=== PATIENT | female | born 1980 | race Caucasian/White ===

== ENCOUNTER → 2020-08-01 09:14 | Outpatient (BNVA) | payer OTHER, SELFPAY | PROVIDERS: Visit Provider Internal Medicine | DX: Z11.59 Encounter for screening for other viral diseases (principal) | CPT/HCPCS: 87635 ==

== ENCOUNTER 2020-08-06 07:33 | Day surgery (SDC) | payer OTHER, SELFPAY ==
[2020-08-05 17:30] VITALS: BMI 22.2
[2020-08-06 07:54] VITALS: BP 116/85; PULSE 106; RESP 18; TEMP 36.7; O2SAT 99
--- NOTE | 2020-08-06 07:58 | W.PM.OPSUD ---
Surgery/Procedure H&P Update DATE OF PROCEDURE: August 06, 2020 DATE H&P PERFORMED: 07/29/20 H&P UPDATE INFORMATION: I have reviewed H&P completed within last 30 days, I have examined patient prior to procedure and No changes to prior documentation PREOP DIAGNOSIS: Chronic cyst abdominal wall and right groin PLANNED PROCEDURE: Operation Date: 08/06/20 09:05 Proposed Procedures p Excision chronic cyst on abdomen x1 and right groin x2 08530 R22.9(Not Applicable) - Adam Ordaz MD
[2020-08-06 08:15] LABS: OR HCG Qualitative Urine Negative (Negative)
--- NOTE | 2020-08-06 08:15 | ANES.PREANE2 ---
Pre-Anesthetic Assessment Pre-Anesthetic Assessment: Height/Weight: Height 1.68 m Weight 62.596 kg Temp Pulse Resp BP Pulse Ox 98.1 F 106 H 18 116/85 99 08/06/20 07:54 08/06/20 07:54 08/06/20 07:54 08/06/20 07:54 08/06/20 07:54 Preop Diagnosis: Chronic cyst abdominal wall and right groin Proposed Procedure: Operation Date: 08/06/20 09:05 Proposed Procedures p Excision chronic cyst on abdomen x1 and right groin x2 45787 R22.9(Not Applicable) - Adam Ordaz MD Familial anesthetic complications: I chew threw anesthesia. I've woken up before Was Beta Chiara taken within 24 hours: N/A Last intake: Intake Last Liquid Date 08/06/20 Last Liquid Time 06:00 Last Solid Date 08/05/20 Last Solid Time 21:00 Social: Social History: Tobacco and No alcohol Exam: Pre-Anes Outpt Exam: alert, oriented x 3, clear to auscultation bilaterally and regular rate & rhythm Airway: Cervical ROM: WNL MP: 1 Dentition: Full Pulmonary: Pulmonary: Asthma CV/HEM: CV/HEM: HTN Neuropsych: Neuropsych: Seizure Comments: patient states she has had brain tumor for 6+years which has grown from 4 mm to 14 mm. She denies any mass effect symptoms including N/V, dizziness, double vision. She states she has headaches but they have occurred her whole life and they haven't changed in nature or intensity or frequency. She has had multiple surgeries in the past 6 years including multiple spine surgeries by neurospine surgeons, who knew about said lesion. She is in process of trying to see a neurosurgeon about the need for a biopsy to determine if lesion is a granuloma or cancer. Will proceed with MAC, but informed patient if signs of ICH occur (HTN + bradycardia) LMA would be placed for control of CO2. Will keep TIVA Anesthetic Plan: ASA status: 2 Anesthesia: General and MAC Risk of > 500 ml blood loss (7ml/kg in children): No PFSH Anesthesia PFSH: Medical History Chronic granulomatous disease Diverticulitis Hidradenitis suppurativa History of breast cancer Seizure Surgical History History of brain surgery History of reconstruction of left breast History of spinal surgery Family History Denies family history of Anesthesia complication Bleeding disorder Social History (Updated 08/01/20 @ 11:22 by Katherine Pitts LPN) Smoking and tobacco status: current every day smoker cigarettes Second hand smoke exposure: Yes Alcohol intake: never Household members: spouse and children Female Reproductive History: Date of last menstrual period: 07/30/20 Data Anesthesia Other Labs: Laboratory Results - last 48 hr 08/06/20 08:11 Urine HCG, Qual Negative Cardiac Studies: No Data to Display
[2020-08-06] MEDS: sodium chloride 0.9% 1,000 ML 30 ML IV (08:22)
[2020-08-06] MEDS: scopolamine 1.5 Patch 1 PATCH TRANSDERMA (08:23)
[2020-08-06] MEDS: lidocaine 1% INJ 20 mL SUBCUT (09:19)
[2020-08-06] MEDS: neomycin-poly-bacitracin oint 28 gm 1 APPLIC TOPICAL (09:37)
[2020-08-06 09:48] VITALS: BP 145/96; PULSE 92; RESP 14; TEMP 36.2; O2SAT 100
--- NOTE | 2020-08-06 09:53 | SUR.PHASEI ---
0948 PATIENT TO PACU FROM OR. RR EVEN AND UNLABORED. DENIES PAIN. DRESSING TO ABDOMEN, CDI. SPO2 100% ON SIMPLE MASK AT 8L.
[2020-08-06 09:55] VITALS: BP 143/87; PULSE 90; RESP 23; O2SAT 100
[2020-08-06 10:00] VITALS: BP 121/85; PULSE 85; RESP 16; TEMP 36.2; O2SAT 99
--- NOTE | 2020-08-06 10:07 | SUR.PHASEI ---
1003 PATIENT TO OPS FROM PACU. TOLERATING ICE CHIPS. DENIES NAUSEA. PAIN 02/28.
--- NOTE | 2020-08-06 10:09 | P.OP_ITS ---
Operative Report Date of procedure: August 06, 2020 Pre-op Diagnosis: Chronic cyst abdominal wall and right groin Post-op Diagnosis: Lesion 1: Chronic abscess 3 x 3 cm left lower abdominal wall at the scar Lesion 2: Chronic abscess measuring 2 x 2 cm right groin superiorly Lesion 3: Chronic abscess measuring 3 x 2 cm right groin inferiorly Procedure Done: Excision of chronic abscess 3 x 3 cm left lower abdominal wall at the scar Excision of chronic abscess measuring 2 x 2 cm right groin superiorly Excision of chronic abscess measuring 3 x 2 cm right groin inferiorly Specimens removed/disposition: chronic abscess abdominal wall and right groin Surgeon: Adam Ordaz Anesthesia: General Condition: stable Disposition: PACU Procedure: The patient was taken to the operating room and intubated under general anesthesia after IV antibiotic had been administered. The lower abdomen and right groin was prepped and draped in a sterile manner. 1% lidocaine with 0.5% Marcaine was infiltrated around the 3 lesions. Using 15 blade in a vertical 4 cm incision was made around the palpable mass in the left lower abdominal wall at the scar, electrocautery was used to dissect the subcutaneous tissue from the chronically inflamed cyst. The wound was irrigated with saline, hemostasis ensured and subcutaneous tissues approximated using interrupted 3-0 Vicryl suture and skin was closed using 3-0 Prolene suture. Using 15 blade in a oblique 3 cm elliptical incision was made around the palpable mass in the right groin superiorly, electrocautery was used to dissect the subcutaneous tissue from the chronically inflamed cyst. The wound was irrigated with saline, hemostasis ensured and subcutaneous tissues approximated using interrupted 3-0 Vicryl suture and skin was closed using 3-0 Prolene suture. Using 15 blade in a oblique 3 cm elliptical incision was made around the palpable mass in the right groin inferiorly, electrocautery was used to dissect the subcutaneous tissue from the chronically inflamed cyst. The wound was irrigated with saline, hemostasis ensured and subcutaneous tissues approximated using interrupted 3-0 Vicryl suture and skin was closed using 3-0 Prolene sut ure. Incisions are covered with antibiotic cream and sterile dressings. The patient was transferred to recovery room in stable condition.
[2020-08-06 10:12] VITALS: PULSE 87; RESP 18; TEMP 36.2; O2SAT 98
[2020-08-06 10:34] VITALS: BP 125/88; PULSE 78; RESP 18; TEMP 37.1; O2SAT 98
--- NOTE | 2020-08-06 10:59 | ANE.PACU2 ---
Inpatient post-anesthesia follow up: Airway intact: Yes Vital signs: Temperature 98.7 F Pulse Rate 78 Respiratory Rate 18 Blood Pressure 125/88 Pulse Oximetry 98 Oxygen Delivery Me thod Room Air Oxygen Flow Rate 8 Fraction of Inspir ed Oxygen Hydration adequate: Yes Nausea and vomiting: No Pain level: 1 Mental status: Baseline
== END 2020-08-06 10:43 | disposition home or self-care (01) ==
PROVIDERS: Visit Provider Surgery
PROC: (CPT 11403; principal; 2020-08-06 09:05)
DX: L72.0 Epidermal cyst (principal); J45.909 Unspecified asthma, uncomplicated; I10 Essential (primary) hypertension; Z85.3 Personal history of malignant neoplasm of breast; F17.210 Nicotine dependence, cigarettes, uncomplicated
CPT/HCPCS: 11403; 11406; 12032; 12345; 81025; 84703; 88304; 96365; J0690; J1100; J2250; J2405; J2704; J3010; J3490; J7030

== ENCOUNTER → 2020-10-31 09:52 | Outpatient (BNVA) | payer OTHER, SELFPAY | PROVIDERS: PCP Family Medicine Adult Medicine; Visit Provider Family Medicine Adult Medicine | DX: D49.6 Neoplasm of unspecified behavior of brain (principal); J45.909 Unspecified asthma, uncomplicated; I10 Essential (primary) hypertension; E83.42 Hypomagnesemia; L73.2 Hidradenitis suppurativa; K57.30 Diverticulosis of large intestine without perforation or abscess without bleeding; D71 Functional disorders of polymorphonuclear neutrophils | CPT/HCPCS: 80053; 80061; 84443; 85025; 86140 ==

== ENCOUNTER → 2020-11-06 09:38 | Outpatient (BNVA) | payer OTHER, SELFPAY | PROVIDERS: PCP Family Medicine Adult Medicine; Visit Provider Orthopaedic Surgery | DX: M50.30 Other cervical disc degeneration, unspecified cervical region (principal); M51.36 Other intervertebral disc degeneration, lumbar region | CPT/HCPCS: 72050 ==

== ENCOUNTER 2020-11-28 07:48 | Outpatient (CLI) | payer OTHER, SELFPAY ==
--- NOTE | 2020-11-28 07:55 | MR_ITS ---
WS: [id number] MRI CERVICAL SPINE with and without contrast. HISTORY: M50.30 - Other cervical disc degeneration, unspecified cervical region COMPARISON: 01/08/2020 Multiplanar, multisequence imaging performed through the cervical spine with and without contrast. Straightening of the normal cervical lordosis. There is extensive prior anterior cervical hardware th roughout the cervical spine. Anterior cervical hardware C3-4, C4-5. Interbody spacers are present at C3-4, C4-5, C5-6 and C6-7. Signal within the cervical cord is normal. Visualized posterior fossa is unremarkable. Craniocervical junction, C1 and C2 relationship, odontoid process and soft tissues are normal. C2-C3: Normal. C3-C4: Very mild hypertrophic bone formation without significant stenosis. C4-C5: Mild osteophytic ridging. There is mild encroachment upon the ventral thecal sac and foramen. Mild central stenosis. C5-C6: Osteophytic ridging and annular disc bulging. Disc osteophyte disease causing moderate RIGHT a nd mild LEFT foraminal stenosis and mild central stenosis. C6-C7: Diffuse osteophytic ridging and annular disc bulging. Disc osteophyte disease resulting in mod erate bilateral foraminal stenosis and mild central stenosis. C7-T1: Normal. Paravertebral soft tissues are negative. Soft tissue detail is limited by the hardware artifact. There is no evidence for discitis or osteomyelitis. No significant enhancement in the facet joints ar e along the synovium. MR/MR cervical spine wo/w [id number] IMPRESSION: 1. Extensive prior cervical fusion hardware and interbody spaces as described above. No complications are evident by MRI. MRI appearance is similar to 020. 2. Moderate RIGHT and mild LEFT foraminal stenosis at C5-6 with mild central s tenosis. 3. Moderate bilateral foraminal stenosis and mild central stenosis at C6-7. 4. Mild central stenosis at C4-5.
--- NOTE | 2020-11-28 08:00 | MR_ITS ---
WS: [id number] MRI THORACIC SPINE noncontrast. HISTORY: M50.30 - Other cervical disc degeneration, unspecified cervical region COMPARISON: None available. TECHNIQUE: Multiplanar sequences are performed in sagittal and axial planes. Extensive postoperative changes in the cervical spine. Posterior thoracic alignment is normal. There is very minimal anterior wedging of T10 and T11 with small Schmorl's node along the superior endplat es. No marrow edema. Signal within the thoracic cord is normal. T1-2: Normal. T2-3: Normal. T3-4: Normal. T4-5: Normal. T5-6: Shallow RIGHT paracentral protrusion. No significant stenosis. T6-7: Moderate size central disc protrusion extends slightly greater to the LEFT of midline with mil d contact of the cord but no displacement. T7-8: Small LEFT paracentral disc protrusion without cord contact. Mild narrowing of the LEFT forame n. T8-9: Normal. T9-10: Normal. T10-11: Mild bilateral facet joint arthritis. No stenosis. T11-12: Normal. Paravertebral soft tissues are normal. MR/MR thoracic spin wo con* [id number] IMPRESSION: 1. Mild anterior wedging of T10 and T11 without acute marrow edema. Schmorl's defects within each superior endplate are small. 2. Multilevel small disc protrusions. The most significant is moderate size at T6-7 with mild cord contact.
== END 2020-11-28 07:49 | disposition home or self-care (01) ==
LOC: RADSHAW 07:53
PROVIDERS: PCP Family Medicine Adult Medicine; Visit Provider Orthopaedic Surgery
DX: M50.30 Other cervical disc degeneration, unspecified cervical region (principal); M51.36 Other intervertebral disc degeneration, lumbar region; M54.9 Dorsalgia, unspecified; M48.54XA Collapsed vertebra, not elsewhere classified, thoracic region, initial encounter for fracture; R60.0 Localized edema
CPT/HCPCS: 72146; 72156; A9579

== ENCOUNTER → 2020-12-26 12:21 | Outpatient (BNVA) | payer OTHER, SELFPAY | PROVIDERS: PCP Family Medicine Adult Medicine; Visit Provider Orthopaedic Surgery | DX: Z20.822 Contact with and (suspected) exposure to COVID-19 (principal) | CPT/HCPCS: 87635 ==

== ENCOUNTER 2020-12-31 20:45 | Inpatient (IN) | payer OTHER, SELFPAY ==
[2020-12-24 09:21] VITALS: BMI 24.2
--- NOTE | 2020-12-24 09:42 | ANES.PREANE2 ---
Pre-Anesthetic Assessment Pre-Anesthetic Assessment: Height/Weight: Height 1.68 m Weight 68.039 kg Preop Diagnosis: Chronic cyst abdominal wall and right groin Proposed Procedure: Operation Date: 12/31/20 10:20 Proposed Procedures p C3-T1 PSF, C4-C-C7 Laminectomy(Not Applicable) - Willis Poon DO s Lumbar Laminectomy(Not Applicable) - Willis Poon DO Familial anesthetic complications: Patient has woken up multiple times during her 45 surgeries, including during general anesthetics, but denotes no sensation of lack of movment PONV - will apply scop patch morning of surgery Social: Comment: former smoker Exam: Pre-Anes Outpt Exam: alert, oriented x 3, clear to auscultation bilaterally and regular rate & rhythm Airway: Cervical ROM: WNL (3 spinal surgeries in 2019 (fusion)) MP: 3 Dentition: Other (missing) Pulmonary: Pulmonary: Asthma CV/HEM: CV/HEM: HTN Metabolic: Comments: hypolgycemia Neuropsych: Neuropsych: Seizure (brain lesion (14 mm) - present for 6 years) Anesthetic Plan: ASA status: 2 Anesthesia: General Other: No IVs in R arm (mastectomy) Risk of > 500 ml blood loss (7ml/kg in children): No PFSH Anesthesia PFSH: Medical History Asthma Brain tumor Chronic granulomatous disease Degenerative disc disease, cervical Diverticulosis of colon without diverticulitis DJD (degenerative joint disease) of knee Hidradenitis suppurativa History of breast cancer Hypertension Hypomagnesemia Lumbar degenerative disc disease Seizure Surgical History H/O local excision of skin lesion (08/06/20) chronic cysts right groin and left abdominal wall History of reconstruction of left breast Family History Denies family history of Anesthesia complication Bleeding disorder Social History Smoking and tobacco status: current every day smoker cigarettes Packs smoked per day: 0.5 Alcohol intake: never Lives independently: Yes Household members: spouse Marital status: Current occupational status: retired History of recent travel: No Female Reproductive History: Date of last menstrual period: 12/12/20 Data Anesthesia Cardiac Studies: No Data to Display
[2020-12-31] VITALS (30 sets, daily range): BP systolic 98–170; BP diastolic 65–118; PULSE 59–101; RESP 12–25; TEMP 36.1–37.1; O2SAT 93–100
--- NOTE | 2020-12-31 | SCC_ITS ---
Procedure Done: 1. C3-T2 Posterior instrumentation 2. C3- T2 Posterior spine fusion 3. C5 laminectomy with C5/6 Foraminotomy bilateral and partial facetectomy bilateral 4. C6 Laminectomy with C6/7 Foraminotomies bilateral and partial facetectomies bilateral 5. C7 laminectomy with partail factectomies bilateral 6. use of allogrft 7. use of autograft same incision 8. Application and removal of quinones tongs 14.0 seconds of fluoroscopic guidance, for a cumulative dose of 1.36 mGy, was provided to Dr. Poon by the radiology department. C-arm images of the cervical spine were saved for the patient's permanent record. [facility]
[2020-12-31] MEDS: sodium chloride 0.9% 1,000 ML 30 ML IV (10:40)
[2020-12-31] MEDS: scopolamine 1.5 Patch 1 PATCH TRANSDERMA (10:40)
[2020-12-31] MEDS: midazolam 1 mg/mL INJ 2 mL 2 MG IVP (11:28)
--- NOTE | 2020-12-31 13:40 | W.PM.OPSUD ---
Surgery/Procedure H&P Update DATE OF PROCEDURE: December 31, 2020 DATE H&P PERFORMED: 12/04/20 H&P UPDATE INFORMATION: I have reviewed H&P completed within last 30 days, I have examined patient prior to procedure and No changes to prior documentation PREOP DIAGNOSIS: Chronic cyst abdominal wall and right groin PLANNED PROCEDURE: Operation Date: 12/31/20 10:20 Proposed Procedures p C3-T1 PSF, C4-C-C7 Laminectomy(Not Applicable) - Willis Poon DO s Lumbar Laminectomy(Not Applicable) - Willis Poon DO
[2020-12-31 15:00] LABS: OR HCG Qualitative Urine Negative (Negative)
[2020-12-31] MEDS: thrombin 5,000 unit SDV 5000 UNIT XX (16:12)
[2020-12-31] MEDS: thrombin 5,000 unit SDV 5000 UNIT (16:12)
[2020-12-31] MEDS: vancomycin 1,000 MG SDV 1000 MG XX (17:57)
--- NOTE | 2020-12-31 18:37 | PM.OP ---
Operative Report Date of procedure: December 31, 2020 Pre-op Diagnosis: cervical spondylosis with myelopathy Post-op diagnosis: same Procedure Done: 1. C3-T2 Posterior instrumentation 2. C3- T2 Posterior spine fusion 3. C5 laminectomy with C5/6 Foraminotomy bilateral and partial facetectomy bilateral 4. C6 Laminectomy with C6/7 Foraminotomies bilateral and partial facetectomies bilateral 5. C7 laminectomy with partail factectomies bilateral 6. use of allogrft 7. use of autograft same incision 8. Application and removal of quinones tongs Surgeon: Willis Poon Anesthesia: General Estimated blood loss (mL): 50 Condition: stable Disposition: PACU Procedure: 1. C3-T2 Posterior instrumentation 2. C3- T2 Posterior spine fusion 3. C5 laminectomy with C5/6 Foraminotomy bilateral and partial facetectomy bilateral 4. C6 Laminectomy with C6/7 Foraminotomies bilateral and partial facetectomies bilateral 5. C7 laminectomy with partail factectomies bilateral 6. use of allogrft 7. use of autograft same incision 8. Application and removal of quinones tongs Patient was brought to the operative suite after undergoing anesthesia neuro monitoring was attached. Application of Quinones tongs was performed once the Quinones tongs were applied to her head. Then she was flipped into the prone position and attached to the Quinones attachment. All areas impingement were well-padded. Patient was then prepped and draped in the normal sterile fashion. Skin incision made from C3 down to T2 in midline approach. Once the cervical fascia was cut through then retractors were placed and subperiosteal dissection was made from the spinous process out to the lateral masses from C3 down to T2 bilaterally. Screws were then placed pedicle screws were placed T1 and T2. This was done using a drill and a gearshift and ball probe. Then the screws were placed. Next attention was brought to placing lateral mass screws at C3 C4-C5-C6 bilaterally. This was done again using drill followed by a drill with a guide on it. And then 14 mm lateral mass screws were placed bilaterally from C3 down to C6. Next attention was brought to performing laminectomy at C5-C6 and C7 bilaterally. The lamina were is taken off and ligamentum flavum was cut in the laminectomy was performed in the lobster tail type fashion once the 3 lamina were removed. Attention was made to performing facetectomies bilaterally partial facetectomies bilaterally at C5-6 and C6-7. As well as C7-T1. Next attention was brought to performing foraminotomies this was done at C5-6 bilaterally and C6-7 bilaterally. The foramen were palpated with a small curette to make sure they were opened bilaterally. Dura was in good repair. And then extension was brought to placing rods into the screws from C3-T2. This was done bilaterally. Once the rods were placed they were then and caps were placed and they were torqued down. Bone was then decorticated after irrigating and then bone graft auto and allograft osteoamp was packed into the lateral gutters. And then wounds were closed with strata fix in a layered fashion and Monocryl suture. Glue was placed. Sterile dressing was applied and patient was flipped into the supine position after an attaching the Quinones tongs. And then the Quinones was removed from her head. And patient was transferred to the PACU in stable condition.
--- NOTE | 2020-12-31 19:10 | SUR.PHASEI ---
1909- NARCAN 0.1 MG ADMINISTERED PER AMALIA TEST ENGINEERING MANAGER
--- NOTE | 2020-12-31 19:15 | XR_ITS ---
WS: [id number] Cervical spine, 2 C-arm fluoroscopy views in the OR, 12/31/2020 Clinical Data: C3-T 1 PSF, Comparison: Cervical spine, 11/06/2020. Findings: The patient had a anterior cervical disc fusion from C3 through C5. There are disc spacers at at C3-4, C4-5, C5-6 and C6-7. The patient now has a posterior cervical fusion from C3 through T2 w ith bilateral pedicle screws and connecting rods. There is an endotracheal tube in good position. XR/XR cervical spine 3V* [id number] Impression: 1. Intact anterior cervical disc fusion from C3 through C5. 2. Disc spacers from C3-C4 through C6-C7. 3. Posterior cervical fusion from C3 through T2.
--- NOTE | 2020-12-31 19:20 | SUR.PHASEI ---
1919- LMA REMOVED PER TRINITY HOLLAND. SIMPLE MASK IN PLACE AT 8LPM SAT 98%
--- NOTE | 2020-12-31 19:40 | SUR.PHASEI ---
1924- PATIENT POSITIONING IS RIGID, UNABLE TO FOLLOW COMMANDS. PUPILS EQUAL, ROUND, REACTIVE APPROX 7MM. BILATERAL FEET POSTURING FLAT WITH SHAKING NOTED. DR WOOTEN AT THE BEDSIDE 1929- VERSED ADMINISTERED PER MD AHMET 1932- DECADRON ADMINISTERED PER MD AHMET 1934- DR MURPHY NOTIFIED OF CONSULTATION REQUEST 1944- PATIENT RAISES EYEBROWS TO VERBAL AND TOUCH STIMULI. PUPILS EQUAL, ROUND, REACTIVE, APPROX 5MM
[2020-12-31 19:57] LABS: Glucose Point of Care 106 mg/dL (70-110)
--- NOTE | 2020-12-31 20:04 | CTR_ITS ---
PROCEDURE INFORMATION: Exam: CT Head Without Contrast Exam date and time: 12/31/2020 8:06 PM Age: 40 years old Clinical indication: Other: Seizure/trouble waking from c-spine SX TECHNIQUE: Imaging protocol: Computed tomography of the head without contrast. Radiation optimization: All CT scans at this facility use at least one of these dose optimization techniques: automated exposure control; mA and/or kV adjustment per patient size (includes targeted exams where dose is matched to clinical indication); or iterative reconstruction. COMPARISON: MRI Head w/wo* [id number] 01/08/2020 2:15 PM RADIATION DOSE METRICS: Total DLP (mGy-cm): 2801.35 FINDINGS: Brain: Small region of decreased attenuation in the medial right anterior temporal lobe, however this appears to correlate with a pre-existing area of T2 prolongation the on the prior brain MRI from 01/08/2020. Negative for acute intracranial hemorrhage. [place] matter white matter differentiation is unremarkable. No mass effect on the brain. No midline shift of brain. Cerebral ventricles: No ventriculomegaly. Bones/joints: There is soft tissue gas posterior to the occipital area and the proximal cervical spine area consistent with the known recent cervical spine surgery. Paranasal sinuses: Visualized sinuses are unremarkable. No fluid levels. Mastoid air cells: Visualized mastoid air cells are well aerated. Soft tissues: Unremarkable. CT/CT head wo con* [id number] IMPRESSION: 1. No acute intracranial abnormality is identified. 2. There is a pre-existing region of gliosis in the anteromedial right temporal lobe unchanged from brain MRI on 01/08/2020. Radiation Dose CTDIVOL = (mGy): DLP = 2801.35 (mGy-cm)
--- NOTE | 2020-12-31 20:05 | CTR_ITS ---
PROCEDURE INFORMATION: Exam: CT Angiography Head With Contrast, Arteries Exam date and time: 12/31/2020 8:06 PM Age: 40 years old Clinical indication: Other: Seizure/trouble waking from c-spine SX TECHNIQUE: Imaging protocol: Computed tomography angiography of the head with intravenous contrast. 3D rendering (Not supervised by radiologist): MIP and/or 3D reconstructed images were created by the technologist. Radiation optimization: All CT scans at this facility use at least one of these dose optimization techniques: automated exposure control; mA and/or kV adjustment per patient size (includes targeted exams where dose is matched to clinical indication); or iterative reconstruction. Contrast material: OMNI 350; Contrast volume: 95 ml; Contrast route: INTRAVENOUS (IV); COMPARISON: No relevant prior studies available. RADIATION DOSE METRICS: Total DLP (mGy-cm): 605.36 FINDINGS: ANTERIOR CIRCULATION: Right internal carotid artery: Unremarkable. Intracranial segment is patent with no significant stenosis. No aneurysm. Right middle cerebral artery: Unremarkable. No occlusion or significant stenosis. No aneurysm. Right anterior cerebral artery: Unremarkable. No occlusion or significant stenosis. No aneurysm. Left internal carotid artery: Unremarkable. Intracranial segment is patent with no significant stenosis. No aneurysm. Left middle cerebral artery: Unremarkable. No occlusion or significant stenosis. No aneurysm. Left anterior cerebral artery: Unremarkable. No occlusion or significant stenosis. No aneurysm. POSTERIOR CIRCULATION: Right vertebral artery: Unremarkable. No occlusion or significant stenosis. No aneurysm. Left vertebral artery: Unremarkable. No occlusion or significant stenosis. No aneurysm. Basilar artery: Unremarkable. No occlusion or significant stenosis. No aneurysm. Right posterior cerebral artery: Unremarkable. No occlusion or significant stenosis. No aneurysm. Left posterior cerebral artery: Unremarkable. No occlusion or significant stenosis. No aneurysm. Brain: No definite mass, mass effect, or midline shift. Cerebral ventricles: No ventriculomegaly. Bones/joints: Unremarkable. No acute fracture. Soft tissues: Soft tissue gas posterior to the occiput and the proximal cervical spine consistent with the known recent cervical spine surgery. CT/CT angio head [id number] IMPRESSION: No large vessel stenosis or occlusion. Radiation Dose CTDIVOL = (mGy): DLP = 605.36 (mGy-cm)
[2020-12-31] MEDS: iohexol 350 mg/mL 100 mL Btl IV (20:28)
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
--- NOTE | 2020-12-31 20:49 | ANE.PACU2 ---
Inpatient post-anesthesia follow up: Airway intact: Yes Vital signs: Temperature 97.7 F Pulse Rate 80 Respiratory Rate 16 Blood Pressure 136/91 Pulse Oximetry 97 Oxygen Delivery Me thod Nasal Cannula Oxygen Flow Rate 2 Fraction of Inspir ed Oxygen Hydration adequate: Yes Nausea and vomiting: No Pain level: 5 Mental status: Altered Additional Comments: Patient very slow to wake up from anesthetic (2 hrs), initial thought was over narcotization--reversed (pupils not necessarily constricted and massively dilated after reversal), patient exhibited seizure-like activity (with h/o), titrated midazolam and consulted neurologist (Dr. Frye) and hospitalist (Dr. Johnson). Taken to CT scan (unremarkable). Final disposition ICU, v/s remained stable throughout with spontaneous ventilation and no airway.
--- NOTE | 2020-12-31 20:49 | SUR.PHASEI ---
2005- PATIENT TO CT FOR IMAGING 2029- PATIENT TO ICU. VSS. SHE IS ALERT AND ORIENTED. RESPONDS APPROPRIATELY TO VERBAL STIMULI.
[2020-12-31] MEDS: morphine 4 mg/mL SDV 1 mL 2 MG IVP (20:54)
--- NOTE | 2020-12-31 20:56 | PM.CONSULT ---
Providers/Reason For Consult Consulting Physican/Specialty*: Frase/Hospitalist Reason for Consult*: slow to wake up after surgery, possible seizures Requesting Physcian: Dr Rankin Attending Physician: Willis Poon DO Primary Care Provider: Olman Han MD History of Present Illness History of Present Illness Marsha Marshall is a 40 year old female who underwent posterior spinal fusion from C3-T2 as well as laminectomy of C5, C6 and C7 today by Dr. Poon. Postoperatively she was very slow to awaken. She had received some fentanyl and Dilaudid for intraoperative pain control. Given level of sedation, she did receive some Narcan without significant improvement. She was also noted to have some posturing type movements and other findings suggesting possibility of seizure activity by anesthesia. She received some Versed given abnormal movements and concern for seizure. Reported to have had some mild tonic-clonic activity and abnormal eye movements though pupils were sluggishly reactive. Has a history of seizures in the past although details are not clear. I was contacted by Dr. Rankin with anesthesia. Patient will be going to the ICU postoperatively and with degree of postoperative sedation, history of asthma and possibility of seizure, request for hospitalist consultation to assist with management. Dr. Frye was also contacted. Patient underwent immediate CT imaging of the head along with CTA of the head neck. No vascular abnormalities were identified and no evidence of hemorrhage or other acute abnormality on CT of the head. Neurological exam at that time did not show any focal abnormalities and posturing and tonic-clonic movements had subsequently ceased. She began to arouse a little bit after the CT imaging. She has started to be cooperative and following simple commands. She is cold and complains of pain. She has some eye movements consistent with previously received anesthetics. History is obtained primarily from review of available records although augmented a little bit by her. Review of Systems Const: Reports: chills; Denies: fever(s) Eyes: Denies: change in vision ENMT: Reports: throat pain and odynophagia Card: Denies: chest pain or palpitations Resp: Denies: dyspnea, wheezing or stridor GI: Denies: nausea or vomiting Musc: Reports: neck pain and back pain Skin/Breast: Denies: pruritus Neuro: Denies: headache(s), numbness in extremities or weakness in extremities Meds/Allergies Home Medications and Allergies Home Medications Medication Instructions Recorded Confirmed Last Taken Type clonazepam 1 mg tablet 1 mg PO DAILY 07/29/20 12/31/20 12/30/20 History zolmitriptan 5 mg tablet 5 mg PO Q2H PRN 07/29/20 12/31/20 Unknown History Aimovig Autoinjector 140 mg SUBCUT UNK 08/05/20 12/31/20 12/15/20 History amlodipine 5 mg tablet 5 mg PO DAILY #30 tab 10/31/20 12/31/20 12/31/20 Rx fluticasone propionate 220 2 puff INHALATION BID #12 g 10/31/20 12/24/20 Unknown Rx mcg/actuation HFA aerosol inhaler gabapentin 600 mg tablet 600 mg PO TID #90 tab 10/31/20 12/31/20 12/30/20 Rx hydrocodone 10 mg-acetaminophen 1 tab PO TID PRN tab 10/31/20 12/31/20 12/29/20 History 325 mg tablet magnesium oxide 400 mg PO BID #60 cap 10/31/20 12/31/20 12/30/20 Rx modafinil 200 mg tablet 200 mg PO DAILY 10/31/20 12/31/20 12/30/20 History ropinirole 2 mg tablet 2 mg PO DAILY 10/31/20 12/31/20 12/30/20 History albuterol sulfate 90 mcg/actuation 2 puff INHALATION Q6H PRN 90 Days 11/03/20 12/31/20 12/29/20 Rx aerosol inhaler #54 g Allergies Allergy/AdvReac Type Severity Reaction Status Date / Time promethazine [From Phenergan] Allergy Severe ADR-Drowsy Verified 12/04/20 08:13 Current Medications Current Medications Generic Name Dose Route Start Last Admin Trade Name Freq PRN Reason Stop Dose Admin Iohexol 0 ml 12/31/20 20:27 12/31/20 20:28 Iohexol 350 Mg/Ml 100 Ml Btl IV 12/31/20 20:28 95 ml ONCE ONE Administration PFSH Acute PFSH: Medical History (Updated 01/01/21 @ 01:19 by Jennifer Johnson MD) Asthma Brain tumor right anterior temporal lobe, followed in [facility], had been on adderall and requip for effects from this tumor and last measurement 14mm per clinic notes. Neurosurgeon Dr Nettles At [facility]. Chronic granulomatous disease Chronic pain related to multiple spinal issues/surgeries Degenerative disc disease, cervical Diverticulosis of colon without diverticulitis DJD (degenerative joint disease) of knee Hidradenitis suppurativa History of breast cancer Hypertension Hypomagnesemia Lumbar degenerative disc disease Migraine on aimovig and prn triptan Nicotine dependence, cigarettes, uncomplicated Seizure Follows with Dr Romero in [place], details unknown Surgical History (Updated 12/31/20 @ 22:13 by Jennifer Johnson MD) H/O local excision of skin lesion (08/06/20) chronic cysts right groin and left abdominal wall History of back surgery (~01/2019) ADCF L4-S1 History of History of incision and drainage multiple History of neck surgery (~11/2018) ADCF C5,C6,C7 History of neck surgery (~06/2019) ACDF C3,C4,C5 History of reconstruction of left breast Status post cervical spinal fusion (12/31/20) 1. C3-T2 Posterior instrumentation 2. C3- T2 Posterior spine fusion 3. C5 laminectomy with C5/6 Foraminotomy bilateral and partial facetectomy bilateral 4. C6 Laminectomy with C6/7 Foraminotomies bilateral and partial facetectomies bilateral 5. C7 laminectomy with partial factectomies bilateral 6. use of allogrft 7. use of autograft same incision 8. Application and removal of quinones tongs Family History Denies family history of Anesthesia complication Bleeding disorder Social History Smoking and tobacco status: current every day smoker cigarettes Packs smoked per day: 0.5 Alcohol intake: never Lives independently: Yes Household members: spouse Marital status: Current occupational status: retired History of recent travel: No Female Reproductive History: Date of last menstrual period: 12/12/20 Vitals/I&O/Wt Last Vital Signs Temp 97.7 F 12/31/20 20:00 Pulse 80 12/31/20 20:00 Resp 16 12/31/20 20:00 BP 136/91 12/31/20 19:50 Pulse Ox 97 12/31/20 20:00 12/31/20 12/31/20 12/31/20 06:59 14:59 22:59 Intake Total 1750 / 1750 Output Total 200 / 200 Balance 1550 / 1550 Physical Exam Const: OTHER: Sleepy but oriented to person, place, situation. Currently with shivering, chills. HENMT: OTHER: Moist mucous membranes, no tongue noted on visible portions of tongue Eye: OTHER: Pupils equally round and reactive to light, some lateral nystagmus noted, extraocular movements are intact Neck/C-Spine: OTHER: Cervical collar in place, dressing not evaluated at this time Resp: OTHER: Clear to auscultation bilaterally, no wheezes Cardio: OTHER: Regular rate and rhythm, no murmurs, pulses equal x4 GI: OTHER: Abdomen soft, nontender, nondistended with decreased bowel sounds Extremity: NARRATIVE EXTREMITY EXAM: No pitting edema to distal extremities Neuro: OTHER: Face symmetric, handgrip is equal, strength and feet is equal bilaterally, toes downgoing bilaterally, no clonus Psych: OTHER: A little tearful but otherwise not inappropriate for postoperative state Skin: OTHER: Skin is dry, some mild iatrogenic bruising at sites of IVs/draws and other monitoring devices, surgical dressing not evaluated at this time Urinary Catheter Management^: Young: Cath Placed During This Visit: yes, but has since been removed by the nurse Urinary Catheter Date of Insertion: 12/31/20 Urinary Catheter Time of Insertion: 15:40 Date Urinary Catheter Removed: 12/31/20 Time Urinary Catheter Discontinued: 18:25 Data Labs: Other Labs: Laboratory Last Values POC Glucose 106 mg/dL (70-110 ) 12/31/20 19:44 Urine HCG, Qual Negative (Negati ve) 12/31/20 14:57 A&P Assessment and plan (1) Acute encephalopathy: Most likely medication related from home medications plus or minus anesthesia. Did not respond to Narcan so doubt related to narcotics. Did not report that she took any of her triptan day of surgery per medication list. She is chronically on modafinil and from available information last dose was the day prior to surgery. I am not completely sure of the reason why she is on this, although that reason is could be a contributing factor to today's presentation. She is on Requip chronically and combination of this with other medicines causing SOCK TURNER depression could have played a role although it does not sound like she has had similar problems with anesthesia/surgeries in the past. No evidence of fever or other findings suggestive of serotonin syndrome or neuroleptic malignant syndrome. Fortunately CT imaging did not show any acute hemorrhage or vascular abnormality. Anesthesia thought that she very well may be having seizures. Abnormal movements had resolved by the time either Dr. Frye or myself had seen her. She had received some Versed. There is a reported history of seizures but again difficult to confirm or refute at this point in time. Status: Acute (2) Seizure: Status: Chronic (3) Status post cervical spinal fusion: Status: Acute (4) Brain tumor: CT imaging with some gliosis in the right temporal area consistent with abnormalities previously identified on an MRI according to radiology interpretation Status: Chronic (5) Asthma: Does not currently appear to be a contributing factor Status: Chronic Qualifiers: Asthma severity: unspecified severity Asthma persistence: unspecified Asthma complication type: unspecified Qualified Code(s): J45.909 - Unspecified asthma, uncomplicated (6) Hypertension: Status: Chronic Qualifiers: Hypertension type: essential hypertension Qualified Code(s): I10 - Essential (primary) hypertension (7) Hidradenitis suppurativa: Status: Chronic (8) Nicotine dependence, cigarettes, uncomplicated: Status: Chronic Additional A&P Information Postoperative pain At this point in time recommend monitoring tonight for recurrent symptoms Appreciate Dr. Frye's input Continue currently ordered pain control with hydrocodone and Toradol plus low-dose morphine for severe pain Continue home gabapentin Chronically on Klonopin and if needed can consider additional dose this evening but would like to see how she does with above first Wean oxygen to room air as ordered Has albuterol if needed for wheezing or shortness of breath Try to clarify reason for her modafinil prescription as well as last time she took zolmitriptan Continue Requip given chronic use though monitor for recurrent symptoms potentially related to this (outpatient clinic notes indicate that she is on this because of the brain tumor in the right temporal area that is being followed by neurosurgery at [facility]) Continue home amlodipine Check magnesium level with a.m. labs PT valuation as ordered per surgery Postoperative antibiotics as currently ordered SCDs for DVT prophylaxis Nicotine patch if needed Supportive care otherwise We will follow along and address medical issues as indicated For consultation Coding Level of Care Code Acute Caustic Strength Inspector for Roni Duff Diagnoses Acute encephalopathy G93.40 Seizure R56.9 Status post cervical spinal fusion Z98.1 Brain tumor D49.6 Asthma J45.909 Asthma severity: unspecified severity Asthma persistence: unspecified Asthma complication type: unspecified Hypertension I10 Hypertension type: essential hypertension Hidradenitis suppurativa L73.2 Nicotine dependence, cigarettes, uncomplicated F17.210
[2020-12-31] MEDS: lactated ringers 1,000 ML 90 ML IV (21:22)
[2020-12-31] MEDS: ketorolac 30 mg/mL INJ IVP (22:33)
[2020-12-31] MEDS: HYDROcodone-acetaminophen 10-325 mg Tablet 1 TAB PO (23:45)
[2021-01-01] VITALS (32 sets, daily range): BP systolic 90–118; BP diastolic 59–85; PULSE 64–93; RESP 11–29; TEMP 36.4–37.3; O2SAT 20–100
[2021-01-01] MEDS: morphine 4 mg/mL SDV 1 mL 2 MG IVP ×2 (01:24→04:45)
[2021-01-01 04:10] LABS: Basophils % 0.1 %; Hemoglobin 13.4 g/dL (11.5-15.3); Lymphocytes # 0.9 10^3/uL (0.8-4.8); Lymphocytes % 5.3 %; Mean Corpuscular HGB Conc 32.7 g/dL (30.0-36.0); Mean Corpuscular Hemoglobin 30.7 pg (28.0-34.0); Mean Platelet Volume 9.7 fL (7.4-10.4); Monocytes # 0.4 10^3/uL (0.2-0.9); Monocytes % 2.1 %; Neutrophils # 15.42 10^3/uL (1.8-7.7); Neutrophils % 92.1 %; Nucleated Red Blood Cells % 0 %; Platelet Count 236 10^3/cmm (130-400); Red Blood Count 4.36 10^6/uL (4.1-5.3); Red Cell Distribution Width 13.1 % (12.1-15.1); White Blood Count 16.7 10^3/uL (4.0-10.0)
[2021-01-01 04:36] LABS: Alanine Aminotransferase 18 U/L (0-33); Albumin Level 3.8 g/dL (3.5-5.2); Alkaline Phosphatase 55 IU/L (35-105); Anion Gap 14.2 (5-19); Aspartate Amino Transferase 30 U/L (0-32); Blood Urea Nitrogen 12 mg/dL (6-20); Calcium 7.9 mg/dL (8.5-10.5); Carbon Dioxide 24 mmol/L (22-29); Chloride 104 mmol/L (98-107); Globulin 2.7 g/dL (1.3-4.6); Glomerular Filtration Rate 79.9 mL/min (90-130); Glucose 128 mg/dL (65-115); Osmolality Calculated 287 mOsm/kg (285-295); Potassium 4.2 mmol/L (3.5-5.1); Sodium 138 mmol/L (136-145); Total Bilirubin 0.2 mg/dL (0.15-1.2); Total Protein 6.5 g/dL (6.6-8.7)
[2021-01-01] MEDS: CLONazepam 1 mg Tablet PO ×2 (05:13→09:40)
[2021-01-01] MEDS: HYDROcodone-acetaminophen 10-325 mg Tablet 1 TAB PO (07:51)
[2021-01-01] MEDS: lactated ringers 1,000 ML 90 ML IV (08:03)
--- NOTE | 2021-01-01 08:06 | P.PN_ITS ---
Subjective Subjective: Interval history: Patient is postop day #1 from a posterior cervical fusion. Patient this morning is doing well she is having pain. Events last night that occurred were that she was slow to wake up. She had a CTA of her brain which not show anything. At this point patient is from what I know over back to baseline mentally. They thought that maybe she was having a sei zure last night. Vitals/I&O/Wt Last Vital Signs Temp 99.1 F 01/01/21 04:00 Pulse 75 01/01/21 06:00 Resp 17 01/01/21 06:00 BP 95/59 01/01/21 06:00 Pulse Ox 100 01/01/21 06:00 12/31/20 01/01/21 01/01/21 22:59 06:59 14:59 Intake Total 1800 / 1800 400 / 2200 Output Total 200 / 200 800 / 1000 600 / 600 Balance 1600 / 1600 -400 / 1200 -600 / -600 Physical Exam Narrative: EXAM NARRATIVE: Patient has difficulty lifting her arms due to pa in. But otherwise strength is 5 out of 5. Complaining of numbness in her hands but she can still feel me touching. Urinary Catheter Management^: Young: Cath Placed During This Visit: yes, but has since been removed by the nurse Urinary Catheter Date of Insertion: 12/31/20 Urinary Catheter Time of Insertion: 15:40 Date Urinary Catheter Removed: 12/31/20 Time Urinary Catheter Discontinued: 18:25 Data : 01/01/21 03:28 01/01/21 03:28 A&P Additional A&P Information Day #1 posterior cervical fusion. Awaiting Sergio Parsonsay to discharge from my standpoint would like to have input from the hospitalist team. If they feel she is okay to be discharged then I am okay with her being discharged. Attestations 2 Medical Necessity Statement*: OK to D/C from Orthoedic standpoint awaiting Hospitalist input Coding Level of Care Code Acute Metal Window Screen Assembler for Roni Duff
[2021-01-01] MEDS: HYDROmorphone 1 mg/mL INJ 1 mL IVP ×2 (08:11→12:32)
[2021-01-01] MEDS: magnesium oxide 400 mg tablet PO (09:40)
[2021-01-01] MEDS: amlodipine 5 mg Tablet PO (09:40)
[2021-01-01] MEDS: gabapentin 300 mg Capsule 600 MG PO (09:41)
[2021-01-01] MEDS: docusate sodium 100 mg Capsule PO (09:41)
[2021-01-01] MEDS: ropinirole 2 mg Tablet PO (09:41)
--- NOTE | 2021-01-01 09:51 | P.PN_ITS ---
Subjective Subjective: Interval history: This morning patient was examined, she is alert oriented x3, answers all questions appropriate, and was actually ambulating the hallways of the ICU, she still in a lot of pain, she tells me that she has never had an issue with anesthesia in the past, she actually comes out of anesthesia quite quickly, she tells me that she uses the Aimovig because she has a history of migraines, she uses modafinil as she has a history of seizures associated with her brain tumor, uses Requip because of restless leg syndrome, he is on hydrocodone, [place] for her neck pain and chronic pain, she tells me that she is set to see her neurosurgeon and neurologist at [facility] in early January for functional MRI. Currently her only complaint is neck pain, no nausea, no vomiting, no headache, blurry vision, no sudden onset of weakness, has chronic paresthesias of her bilateral upper extremities which have been unchanged, she tells me she really wants to go home and that she feels fine, no history of breakthrough seizures, taking all her medications as prescribed Vitals/I&O/Wt Last Vital Signs Temp 99.1 F 01/01/21 04:00 Pulse 86 01/01/21 08:21 Resp 18 01/01/21 08:21 BP 95/59 01/01/21 06:00 Pulse Ox 20 L 01/01/21 08:21 12/31/20 01/01/21 01/01/21 22:59 06:59 14:59 Intake Total 1800 / 1800 400 / 2200 1201.5 / 1201.5 Output Total 200 / 200 800 / 1000 600 / 600 Balance 1600 / 1600 -400 / 1200 601.5 / 601.5 Physical Exam Const: COMMON NORMALS: no acute distress and patient oriented x3 HENMT: COMMON NORMALS: normocephalic HEAD & SCALP: normocephalic OTHER: Currently in a neck brace Neck/C-Spine: COMMON NORMALS: no JVD Resp: COMMON NORMALS: normal respiratory effort, No retractions, No use of accessory muscles and clear to auscultation bilaterally AUSCULTATION: clear to auscultation bilaterally Cardio: COMMON NORMALS: no JVD, regular rate, regular rhythm, S1 normal heart sound present and S2 normal heart sound present RATE: regular rate RHYTHM: regular rhythm HEART SOUNDS: S1 normal heart sound present and S2 normal heart sound present GI: COMMON NORMALS: Normal to inspection, nondistended, normoactive bowel sounds present, Soft to palpation, non-tender, No hepatosplenomegaly present, no masses and no bruits PALPATION: Yes Soft to palpation and Yes No hepatos plenomegaly present Extremity: COMMON NORMALS: capillary refill normal, no clubbing, cyanosis or edema, no calf tenderness and no pedal edema Neuro: COMMON NORMALS: patient oriented x3, CN's II-XII intact bilaterally, moves all extremities, no focal motor deficits and no sensory deficits noted (Has chronic paresthesias of bilateral upper extremities) Psych: COMMON NORMALS: mental status grossly normal Urinary Catheter Management^: Young: Cath Placed During This Visit: yes, but has since been removed by the nurse Urinary Catheter Date of Insertion: 12/31/20 Urinary Catheter Time of Insertion: 15:40 Date Urinary Catheter Removed: 12/31/20 Time Urinary Catheter Discontinued: 18:25 Data : 01/01/21 03:28 01/01/21 03:28 A&P Assessment and plan (1) Acute encephalopathy: -Multifactorial combination of her home medications, and general anesthesia -CT head was negative for acute stroke, did show pre-existing gliosis in the anterior medial right temporal lobe -CT angiogram of the head and neck did not have any acute findings -No clinical concerns for seizures, is well controlled with her modafinil -No history of narcolepsy, no history of sleep apnea -Has a history of migraines on Aimovig -Has low restless leg syndrome on Requip -Patient was encouraged to follow-up with her neurosurgeon and neurologist as scheduled in January -She would have headache, blurry vision, confusion, lightheadedness, dizziness come back to emergency room -Patient is okay to be discharged later on this afternoon -Pain control and anticoagulation as per Dr. Poon Status: Acute (2) Seizure: Status: Chronic (3) Status post cervical spinal fusion: Status: Acute (4) Brain tumor: CT imaging with some gliosis in the right temporal area consistent with abnormalities previously identified on an MRI according to radiology interpreta tion Status: Chronic (5) Asthma: Does not currently appear to be a contributing factor Status: Chronic Qualifiers: Asthma severity: unspecified severity Asthma persistence: unspecified Asthma complication type: unspecified Qualified Code(s): J45.909 - Unspecified asthma, uncomplicated (6) Hypertension: Status: Chronic Qualifiers: Hypertension type: essential hypertension Qualified Code(s): I10 - Essential (primary) hypertension (7) Hidradenitis suppurativa: Status: Chronic (8) Nicotine dependence, cigarettes, uncomplicated: Status: Chronic Attestations Medical Necessity Statement*: Patient had a laminectomy procedure, with postop acute encephalopathy, will be discharged later on this afternoon Coding Level of Care Code Acute Machine 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
--- NOTE | 2021-01-01 09:59 | PM.DCS ---
Discharge Providers Date of Admission: 12/31/20 20:45 Date of Discharge: January 01, 2021 Attending Provider at Admission: Jennifer Johnson MD Attending Provider at Discharge: Willis Poon DO Primary Care Provider: Olman Han MD Diagnoses at Discharge Discharge Diagnosis (1) Acute encephalopathy: Status: Acute Permanent problem details: s/p Posterior cervical spine fusion and decompresion (2) Seizure: Status: Chronic Permanent problem details: Follows with Dr Romero in [place], details unknown (3) Status post cervical spinal fusion: Status: Acute Permanent problem details: 1. C3-T2 Posterior instrumentation 2. C3- T2 Posterior spine fusion 3. C5 laminectomy with C5/6 Foraminotomy bilateral and partial facetectomy bilateral 4. C6 Laminectomy with C6/7 Foraminotomies bilateral and partial facetectomies bilateral 5. C7 laminectomy with partial factectomies bilateral 6. use of allogrft 7. use of autograft same incision 8. Application and removal of quinones tongs (4) Brain tumor: Status: Chronic Permanent problem details: right anterior temporal lobe, followed in [facility], had been on adderall and requip for effects from this tumor and last measurement 14mm per clinic notes. Neurosurgeon Dr Nettles At [facility]. (5) Asthma: Status: Chronic Qualifiers: Asthma severity: unspecified severity Asthma persistence: unspecified Asthma complication type: unspecified Qualified Code(s): J45.909 - Unspecified asthma, uncomplicated (6) Hypertension: Status: Chronic Qualifiers: Hypertension type: essential hypertension Qualified Code(s): I10 - Essential (primary) hypertension (7) Hidradenitis suppurativa: Status: Chronic (8) Nicotine dependence, cigarettes, uncomplicated: Status: Chronic Reason for Visit Reason for Visit: C3-T1 PSF, C4-C-C7 Laminectomy Hospital Course Hospital Course Patient had a posterior cervical fusion done on 12/31/2020. Patient had difficulty waking up there was question of whether she had a seizure. On 01/01/2021. I evaluated her she was back to baseline. Just complaining of neck pain. Hospitalist evaluated her as well. She has a follow-up with her neurosurgeon for brain tumor in January. She will be following up up there. We will see her back in the clinic in 2 weeks. At this point she is discharged. Physical Exam Urinary Catheter Management^: Young: Cath Placed During This Visit: yes, but has since been removed by the nurse Urinary Catheter Date of Insertion: 12/31/20 Urinary Catheter Time of Insertion: 15:40 Date Urinary Catheter Removed: 12/31/20 Time Urinary Catheter Discontinued: 18:25 Discharge Data Data Completed and Pending: Completed Studies During Hospitalization Category Date Time Status CT head wo con* 7 0450 Routine Cat Scan 12/31/20 20:04 Completed CTA head [CT javier o head [id number]] Rout ine Cat Scan 12/31/20 20:05 Completed XR cervical spine 3V* [id number] Routine Exams 12/31/20 19:15 Completed Labs from last 24 hours 01/01/21 01/01/21 01/01/21 03:28 03:28 03:28 WBC 16.7 H RBC 4.36 Hgb 13.4 Hct 41.0 MCV 94.0 MCH 30.7 MCHC 32.7 RDW 13.1 Plt Count 236 MPV 9.7 Neut % (Auto) 92.1 Lymph % (Auto) 5.3 [place] % (Auto) 2.1 Eos % (Auto) 0.0 Baso % (Auto) 0.1 Neut # (Auto) 15.42 H Lymph # (Auto) 0.9 [place] # (Auto) 0.4 Eos # (Auto) 0.0 Baso # (Auto) 0.0 Nucleated RBC % (a uto) 0 Nucleated RBCs # 0.0 Sodium 138 Potassium 4.2 Chloride 104 Carbon Dioxide 24 Anion Gap 14.2 BUN 12 Creatinine 0.8 GFR Calculation 79.9 L Glucose 128 H POC Glucose Calculated Osmolal ity 287 Calcium 7.9 L Magnesium 2.0 Total Bilirubin 0.2 AST 30 ALT 18 Alkaline Phosphata se 55 Total Protein 6.5 L Albumin 3.8 Globulin 2.7 Urine HCG, Qual 12/31/20 12/31/20 19:44 14:57 WBC RBC Hgb Hct MCV MCH MCHC RDW Plt Count MPV Neut % (Auto) Lymph % (Auto) [place] % (Auto) Eos % (Auto) Baso % (Auto) Neut # (Auto) Lymph # (Auto) [place] # (Auto) Eos # (Auto) Baso # (Auto) Nucleated RBC % (a uto) Nucleated RBCs # Sodium Potassium Chloride Carbon Dioxide Anion Gap BUN Creatinine GFR Calculation Glucose POC Glucose 106 Calculated Osmolal ity Calcium Magnesium Total Bilirubin AST ALT Alkaline Phosphata se Total Protein Albumin Globulin Urine HCG, Qual Negative Vitals: Last Vital Signs Temp 99.1 F 01/01/21 04:00 Pulse 87 01/01/21 09:56 Resp 18 01/01/21 09:56 BP 103/80 01/01/21 09:56 Pulse Ox 97 01/01/21 09:56 Discharge Plan Discharge Patient Disposition: Home Condition: Stable Prescriptions: New oxycodone-acetaminophen 10-325 mg Tablet 1 tab PO Q6H PRN (Reason: Moderate Pain) Qty: 60 RF: 0 Continued clonazepam 1 mg tablet 1 mg PO DAILY RF: 0 zolmitriptan [Zomig] 5 mg tablet 5 mg PO Q2H PRN (Reason: Allergic Reaction) RF: 0 ropinirole 2 mg tablet 2 mg PO DAILY RF: 0 hydrocodone-acetaminophen 10-325 mg tablet 1 tab PO TID PRN (Reason: Pain) RF: 0 modafinil 200 mg tablet 200 mg PO DAILY RF: 0 amlodipine [Norvasc] 5 mg tablet 5 mg PO DAILY Qty: 30 RF: 5 Flovent HFA 220 mcg/actuation HFA aerosol inhaler 2 puff INHALATION BID Qty: 12 RF: 5 gabapentin 600 mg tablet 600 mg PO TID Qty: 90 RF: 3 magnesium oxide 400 mg magnesium capsule 400 mg PO BID Qty: 60 RF: 5 albuterol sulfate [ProAir HFA] 90 mcg/actuation HFA aerosol inhaler 2 puff INHALATION Q6H PRN (Reason: Shortness Of Breath) 90 Days Qty: 54 RF: 1 Aimovig Autoinjector 140 mg/mL auto-injector 140 mg SUBCUT UNK RF: 0 Discharge Orders: Discharge Order (Routine); Ordered 01/01/21 Ordered By: Willis Poon Discharge Diet: Advance as tolerated and Usual diet Discharge Activity: Limit activity as instructed Activity Restrictions/Additional Instructions: Thank you for choosing [facility] for your care! The following is a list of instructions, from your provider, to follow upon your discharge to ensure you have the optimal recovery from your recent injury or surgery. posterior cervical Fusion: What to Expect at Home Your Recovery Follow-up care is a russo part of your treatment and safety. Be sure to make and go to all appointments, and call your doctor if you are having problems. If you do not already have a follow-up appointment made, call office in the next 1-3 days to make follow up appointment for 2 weeks at [phone]. It is also a good idea to know your test results and keep a list of the medicines you take. You can expect your neck to feel stiff or sore after surgery. This should improve in the weeks after surgery. But it may take 4 to 6 months for you to get better completely. You may have trouble sitting or standing in one position for very long and may need pain medicine in the weeks after your surgery. It may take 4 to 6 weeks to get back to your usual activities, but it may depend on what kind of surgery you had. Your throat will feel sore and it may be difficult to swallow for the first 3 days after your surgery. As long as you can get liquids down without difficulty, this should slowly improve, otherwise call our office or seek medical attention if it becomes increasingly difficult to get anything down including liquids. Avoid hot liquids for first 3-5 days. Soothing foods/liquids such as jello, pudding, and luke warm soups are recommended until swallowing improves. Staying elevated will also help, it's advised you keep propped up at while sleeping to help reduce the swelling. You may use an ice pack directly on your incision or around it on the front of your neck, using a cloth to protect your skin; and a heating pad to the back of your neck as needed. Do not use over the counter anti-inflammatory medications (Ibuprofen, Motrin, Aleve, Advil, etc) Taking these meds after having a fusion can delay fusion rates, we recommend you avoid them for the first 3 months after your surgery. Dr. Poon may advise you to work with a physical therapist to strengthen the muscles around your neck and back - this will be discussed at your follow - up appointments. The pain or numbness you were having in your arms before surgery should get better or go away completely. This care sheet gives you a general idea about how long it will take for you to recover. But each person recovers at a different pace. Follow the steps below to get better as quickly as possible. How can you care for yourself at home? Activity ? Rest when you feel tired. Getting enough sleep will help you recover. ? Try to walk each day. Start by walking a little more than you did the day before. Bit by bit, increase the amount you walk. Walking boosts blood flow and helps prevent pneumonia and constipation. Walking may also decrease your muscle soreness after surgery. ? No lifting anything that is more that 5 pounds. This may include heavy grocery bags and milk containers, a heavy briefcase or backpack, cat litter or dog food bags, a child, or a vacuum venetian blind cleaner. ? Avoid strenuous activities, such as bicycle riding, jogging, weightlifting, or aerobic exercise, until your doctor says it is okay. ? Do not drive until your follow-up visit after your surgery, or until your doctor says it isokay. ? Avoid taking long car trips for 2 to 4 weeks after surgery. Your neck may become tired and painful from sitting too long in one position. ? You will probably need to take 4 to 6 weeks off from work. It depends on the type of work you do and how you feel. ? You may have sex as soon as you feel able, but avoid positions that put stress on your neck or cause pain. Diet ? You can eat your normal diet. If your stomach is upset, try bland, low-fat foods like plain rice, broiled chicken, toast, and yogurt ? Drink plenty of fluids. If you have kidney, heart, or liver disease and have to limit fluids, talk with your doctor before you increase the amount of fluids you drink. ? You may notice that your bowel movements are not regular right after your surgery. This is common. Try to avoid constipation and straining with bowel movements. You may want to take a fiber supplement every day. If you have not had a bowel movement after a couple of days, ask your doctor about taking a mild laxative. Medicines ? Take pain medicines exactly as directed. 1. If Dr. Poon gave you a prescription medicine for pain, take lt as prescribed. 2. Do not take two or more pain medicines at the same time unless the doctor told you to. Many pain medicines have acetaminophen, which is Tylenol. Too much acetaminophen {Tylenol) can be harmful. 3. If you think your pain pill is making you sick to your stomach: 4. Take your pills after meals (unless your doctor has told you not to). 5. Ask your Dr. for a different pain pill. Incisioncare ? Remove your dressing 48hours after your surgery. Ok to shower and get the incision wet. Do not overtly wash your incision. When done, pad dry, leave open to air thereafter. Avoid creams and ointments directly on your incision. ? Your sutures in the incision will dissolve and fall out on their own. ? Keep the area clean and dry. You may cover it with a gauze bandage if it weeps or rubs against clothing; if you choose to do this, change the dressing everyday. Other instructions ? Use a heating pad, hot water bottle, or gentle massage on your back to reduce stiffness. Avoid putting heat on your incision When should you call for help? ? Call 911 anytime you think you may need emergency care. For example, call if: ? You pass out (lose consciousness). ? You have sudden chest pain and shortness of breath, or you cough upblood. ? You cannot swallow. ? You have severe pain in your neck or back. ? Call your Dr. or seek immediate medical care if: ? You have pain that does not get better after you take pain pills. ? You have loose stitches, or your incision comes open. ? You have blood or fluid draining from the incision. ? You have signs of infection, such as: 1. Increased pain, swelling, warmth, or redness. 2. Red streaks leading from the site. 3. Pus draining from the site. 4. Swollen lymph nodes in your neck or armpits. 5. A fever. ? You have severe pain in your arms. ? You have new or increased weakness or numbness in your arms. ? Watch closely for any changes in your health, and be sure to contact your doctor if: ? You do not have a bowel movement after taking a laxative. Discharge Attestations Time Spent in Discharge Care*: less than 30 min Quality Metrics Clinical Quality Measures During this hospital stay, did patient experience: None Coding Level of Care Code Acute Real Estate Underwriter for g Fwd Diagnoses Acute encephalopathy G93.40 Seizure R56.9 Status post cervical spinal fusion Z98.1 Brain tumor D49.6 Asthma J45.909 Asthma severity: unspecified severity Asthma persistence: unspecified Asthma complication type: unspecified Hypertension I10 Hypertension type: essential hypertension Hidradenitis suppurativa L73.2 Nicotine dependence, cigarettes, uncomplicated F17.210
--- NOTE | 2021-01-02 17:38 | PC.RESP ---
Smoking Cessation information sent to patient.
== END 2021-01-01 13:00 | disposition home or self-care (01) | DRG 459 ==
LOC: ICU 20:47
PROVIDERS: Admitting Provider Hospitalist; PCP Family Medicine Adult Medicine; Visit Provider Orthopaedic Surgery
PROC: 0RG60AJ Fusion of Thoracic Vertebral Joint with Interbody Fusion Device, Posterior Approach, Anterior Column, Open Approach (ICD-10-PCS; CPT 22600; principal; 2020-12-31 10:00)
PROC: 0RG60AJ Fusion of Thoracic Vertebral Joint with Interbody Fusion Device, Posterior Approach, Anterior Column, Open Approach (ICD-10-PCS; 2020-12-31 10:00)
DX: M48.02 Spinal stenosis, cervical region (principal); G92 Toxic encephalopathy; Z79.51 Long term (current) use of inhaled steroids; Z79.891 Long term (current) use of opiate analgesic; J45.909 Unspecified asthma, uncomplicated; K57.30 Diverticulosis of large intestine without perforation or abscess without bleeding; M17.10 Unilateral primary osteoarthritis, unspecified knee; Z85.3 Personal history of malignant neoplasm of breast; I10 Essential (primary) hypertension; M51.36 Other intervertebral disc degeneration, lumbar region; F17.210 Nicotine dependence, cigarettes, uncomplicated; Z98.1 Arthrodesis status; R56.9 Unspecified convulsions; D49.6 Neoplasm of unspecified behavior of brain; L73.2 Hidradenitis suppurativa; G25.81 Restless legs syndrome; G43.909 Migraine, unspecified, not intractable, without status migrainosus
CPT/HCPCS: 12345; 36416; 70450; 70496; 72040; 72100; 76000; 80053; 81025; 82962; 83735; 84703; 85025; 94640; 96374; C1713; J0131; J0690; J1100; J1170; J1885; J2250; J2270; J2310; J2405; J2704; J3010; J3370; J3490; J3535; J7030; Q9967

== ENCOUNTER → 2021-02-24 10:31 | Outpatient (BNVA) | payer OTHER, SELFPAY | PROVIDERS: PCP Family Medicine Adult Medicine; Visit Provider Orthopaedic Surgery | DX: Z98.1 Arthrodesis status (principal); Z48.89 Encounter for other specified surgical aftercare | CPT/HCPCS: 72040 ==

== ENCOUNTER → 2021-03-24 08:00 | Outpatient (BNVA) | payer OTHER, SELFPAY | PROVIDERS: PCP Family Medicine Adult Medicine; Visit Provider Orthopaedic Surgery | DX: Z98.1 Arthrodesis status (principal); Z48.89 Encounter for other specified surgical aftercare | CPT/HCPCS: 72040 ==

== ENCOUNTER 2021-04-07 08:04 | Outpatient (RCR) | payer OTHER, SELFPAY | END 2021-04-20 23:59 | disposition home or self-care (01) | LOC: SPT 08:04 | PROVIDERS: PCP Family Medicine Adult Medicine; Referring Provider Orthopaedic Surgery; Visit Provider Orthopaedic Surgery | DX: Z98.1 Arthrodesis status (principal) | CPT/HCPCS: 97110; 97161 ==

== ENCOUNTER 2021-04-21 06:00 | Outpatient (RCR) | payer OTHER, SELFPAY | END 2021-05-20 23:59 | disposition home or self-care (01) | LOC: SPT 06:00 | PROVIDERS: PCP Family Medicine Adult Medicine; Referring Provider Orthopaedic Surgery; Visit Provider Orthopaedic Surgery | DX: Z98.1 Arthrodesis status (principal) | CPT/HCPCS: 97110 ==

== ENCOUNTER 2021-05-21 06:00 | Outpatient (RCR) | payer OTHER, SELFPAY | END 2021-06-20 23:59 | disposition home or self-care (01) | LOC: SPT 06:00 | PROVIDERS: PCP Family Medicine Adult Medicine; Referring Provider Orthopaedic Surgery; Visit Provider Emergency Medicine Emergency Medical Services | DX: M54.2 Cervicalgia (principal) | CPT/HCPCS: 97110 ==

== ENCOUNTER → 2021-06-16 09:10 | Outpatient (BNVA) | payer OTHER, SELFPAY | PROVIDERS: PCP Family Medicine Adult Medicine; Visit Provider Family Medicine Adult Medicine | DX: N18.9 Chronic kidney disease, unspecified (principal); R63.4 Abnormal weight loss | CPT/HCPCS: 80053; 83036 ==

== ENCOUNTER 2021-06-21 06:00 | Outpatient (RCR) | payer OTHER, SELFPAY | END 2021-07-21 23:59 | disposition home or self-care (01) | LOC: SPT 06:00 | PROVIDERS: PCP Family Medicine Adult Medicine; Referring Provider Orthopaedic Surgery; Visit Provider Emergency Medicine Emergency Medical Services | DX: M54.2 Cervicalgia (principal) | CPT/HCPCS: 97110 ==

== ENCOUNTER → 2021-06-25 13:22 | Outpatient (BNVA) | payer OTHER, SELFPAY | PROVIDERS: PCP Family Medicine Adult Medicine; Visit Provider Orthopaedic Surgery | DX: Z47.89 Encounter for other orthopedic aftercare (principal); Z98.1 Arthrodesis status; M54.2 Cervicalgia | CPT/HCPCS: 72040 ==

== ENCOUNTER 2021-07-08 13:23 | Outpatient (CLI) | payer OTHER, SELFPAY ==
--- NOTE | 2021-07-08 13:28 | CT_ITS ---
WS: [id number] CT CERVICAL MYELOGRAM TECHNIQUE: CT of the cervical spine coronal and sagittal reformatted images post intrathecal administ ration of contrast. CLINICAL INFORMATION: Z98.1 - Arthrodesis status COMPARISON: MRI November 28, 2020 DLP: 1710.[address] scans at [facility] use at least one of these dose optimization techniques: automat ed exposure control; mA and/or kV adjustment per patient size (includes targeted exams where dose is matched to clinical indication); or iterative reconstruction. FINDINGS: Postoperative changes C3-T2 with dorsal interconnecting rods and pedicle screw fixation. C5-C7 aaron ctomies with partial facetectomies. Interbody fusion grafts C3-C4 C4-C5 C5-C6 and C6-C7. Stable anter ior plate and screw fixation at C3-C5. No evidence of hardware loosening. Interbody fusion grafts result in a significant amount of beam hardening artifact. No evidence of sub sidence. Evidence of bony bridging beyond the confines of the grafts better evaluated on the prior ra diographs. Fusion appears solid on the prior radiographs. Dorsal interconnecting rods appear intact. Maturing dorsal lateral bone graft material at C3-C6. C2-C3: No significant disc bulging. Spinal canal and foramen are patent. C3-C4: Anterior and posterior fusion. Spinal canal is patent. Mild to moderate left bony foraminal na rrowing. C4-C5: Anterior and posterior fusion. Spinal canal and foramen appear patent. C5-C6: Anterior and posterior fusion with laminectomy defects. Spinal canal has been decompressed. Mi ld/moderate right and mild left bony foraminal narrowing. Mild facet arthropathy. C6-C7: Anterior and posterior fusion. Moderate right greater than left bony foraminal narrowing. Spin al canal has been decompressed. C7-T1: No significant disc bulging. Spinal canal and foramen appear patent. Upper thoracic canal appears patent. Visualized lung apices are normal. CT/CT cervical spine w con [id number] IMPRESSION: 1. Postoperative changes dorsal element fusion with interconnecting rods at C3 -T2 unchanged from the prior MRI. Interconnecting rods are intact. No evidence of hardware loosening. 2. Maturing bone graft material involving the posterior elements at C3-C6 3. Anterior plate and screw fixation appears unchanged from previous at C3-C5 with interbody fusion grafts at C3-C6. 4. Interbody fusion grafts result in a significant amount of beam hardening ar tifact which limits evaluation. However there is evidence of bony bridging beyo nd the confines of the grafts on the prior radiographs with solid-appearing fus ion. No evidence of subsidence. 5. No high-grade central canal stenosis. 6. Moderate bony foraminal narrowing worse at bilateral C5-C6 worse in the lef t and bilateral C6-7. 7. Spinal canal has been decompressed with laminectomy defects at C5-C7.
[2021-07-08] MEDS: iohexol 300 mg/mL 100 mL Btl IV (13:57)
== END 2021-07-08 13:24 | disposition home or self-care (01) ==
PROVIDERS: PCP Family Medicine Adult Medicine; Visit Provider Orthopaedic Surgery
DX: Z98.1 Arthrodesis status (principal); M96.1 Postlaminectomy syndrome, not elsewhere classified
CPT/HCPCS: 72126; Q9967

== ENCOUNTER 2021-12-03 13:44 | Outpatient (CLI) | payer OTHER, SELFPAY ==
--- NOTE | 2021-12-03 14:00 | CT_ITS ---
WS: [id number] CT ANGIOGRAPHY OF THE ABDOMINAL AORTA WITH RUNOFF TO THE ANKLES HISTORY: I71.4 - Abdominal aortic aneurysm, without rupture TECHNIQUE: Arterial injection is performed during imaging to evaluate the aorta and runoff vessels to the ankles. MIP and volume rendering imaging has also been performed. All images are reviewed. All C T scans at [facility] use at least one of these dose optimization techniques: automated exposu re control; mA and/or kV adjustment per patient size (includes targeted exams where dose is matched t o clinical indication); or iterative reconstruction. Contrast: Omnipaque 350; 95 mL IV. DLP: 1060.23 mGy.cm COMPARISON: None available. Lung bases are clear. Heart is normal size. No hiatal hernia. Tricuspid regurgitation into hepatic ve ins. Visualized liver on this early enhancement is normal. Variable density within the gallbladder luciano men is probably related to stones. Normal size spleen. Normal pancreas and adrenal glands. No renal o bstruction. No ascites or adenopathy. There is mild constipation. The GI tract evaluation is limited without oral contrast. Abdominal aorta: Normal size aorta. No aneurysm or dissection. Celiac axis and the SMA are normal. In ferior mesenteric artery is also normal. Single bilateral renal arteries. Kidneys are normally enhanc ing. No obstruction. RIGHT lower extremity arterial system: From the origin of the RIGHT common iliac artery to the poplit eal artery there is no significant stenosis. No aneurysms are identified. Femoral artery and the deep profunda are widely patent. Popliteal artery is normal. Good three-vessel runoff to the ankle. LEFT lower extremity arterial system: From the origin of the LEFT common iliac artery to the poplitea l artery. There is no significant stenosis. No aneurysms are identified. Femoral artery and the deep profunda are widely patent. Popliteal artery is normal. Good three-vessel runoff to the ankle. Posterior lumbar fusion from L4 to S1. Interbody spacers at L4-5 and L5-S1. Large posterior laminecto my defect at the L4-[address]/CT angio abd aorta runof [id number] IMPRESSION: 1. No abdominal aortic aneurysm. 2. No aneurysms or significant stenosis or atherosclerotic disease from the ab dominal aorta to the ankles. 3. Variable density within the gallbladder lumen probably related to cholelith iasis or sludge. If clinically necessary follow-up by ultrasound can be obtaine d.
[2021-12-03] MEDS: iohexol 350 mg/mL 100 mL Btl IV (14:17)
== END 2021-12-03 13:45 | disposition home or self-care (01) ==
LOC: RAD 13:47
PROVIDERS: PCP Family Medicine Adult Medicine; Visit Provider Internal Medicine Cardiovascular Disease
DX: I71.4 Abdominal aortic aneurysm, without rupture (principal)
CPT/HCPCS: 75635

== ENCOUNTER 2021-12-08 07:28 | Outpatient (CLI) | payer OTHER, SELFPAY ==
[2021-12-08 07:39] VITALS: BMI 19.8
--- NOTE | 2021-12-08 07:39 | ECG_ITS ---
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 Baseline heart rate was 89 beats per minute. Baseline blood pressure was 115/82 millimeters of mercury. Target heart rate was 180 beats per minute. Maximum heart rate achieved was 157, which was 87% of the target heart rate. Maximum blood pressure was 168/94 millimeters of mercury. Total exercise time was 13 minutes. Maximum METs achieved was 17.2, maximum VO2 was 60.2. The reason for ending the test was maximum effort achieved. The patient complained of shortness of breath during the stress test, which then resolved at the end of the test. ELECTROCARDIOGRAM: BASELINE: Sinus rhythm, normal axis, no significant ST-T changes at the baseline noted. EXERCISE: At the peak exercise level, no significant ST-T changes suggestive of ischemia noted. RECOVERY: During the recovery period, heart rate dropped appropriately. No significant ST-T changes in the recovery suggestive of ischemia noted. CONCLUSION: 1. Exercise capacity good. 2. Heart rate response was appropriate. 3. Blood pressure response was appropriate. 4. Symptoms not suggestive of ischemia. 5. Electrocardiogram portion of the stress test was not suggestive of ischemia. 6. Nuclear scan will be documented separately. Electronically Signed On 12-08-2021 21:51:04 TECHNOLOGY RESOURCE TEACHER by MATT LEVY [id number]
--- NOTE | 2021-12-08 07:40 | NMCV_ITS ---
NM sushil perf SPECT r/s* [id number] Marsha Marshall Age: 41 Gender: F : 1980 Exam Date: 12/08/2021 08:48 Ordering Phys: Parris Levy MD ([email or web address]) Technologist: YAMILETH Varela Exam Location: [facility] Indications: CHEST PAIN STRESS TEST Please see separate stress test report in [facility] for full findings IMAGE PROTOCOL Rest/Stress 1 Exercise Day Radiopharmaceutical Dose (mCi) Administration Site Administered by Rest: Tc-99m 10.8 IV YAMILETH Rodriguez Sestamiiman Stress:Tc-99m 32.5 IV YAMILETH Rodriguez Sestamibi Rest: 08-Dec-2021 60 Discovery 630 Stress: 08-Dec-2021 15 Discovery 630 Radiopharmaceutical was injected at 87 % maximum heart rate. Images obtained in supine and prone position. SPECT RESULTS Technical Quality: Excellent Raw Data Analysis: Normal Image Corrections: No attenuation or motion correction applied Summed Stress Score: 0 Summed Rest Score: 4 Summed Difference Score: 0 PERFUSION FINDINGS Large area of patchy fixed reduced tracer uptake noted in basal to distal anterior wall suggestive of artifact in the absence of wall motion abnormality. Medium size area of reduced tracer uptake noted in basal to distal inferior wall in the absence of wall motion abnormality suggestive of artifact FUNCTIONAL RESULTS (calculated via Gated SPECT) Stress Image LV EF (%): 75 Stress EDV (mL):79 TID: 0.8 Stress ESV (mL):20 Rest Image LV EF (%): 75 FUNCTIONAL FINDINGS: There is normal left ventricular systolic function. IMPRESSIONS This study is negative for ischemia. EKG segment will be documented separately. Parris Levy MD (Electronically Signed) Final Date: 08 December 2021 18:22 S
[2021-12-08 10:12] VITALS: BP 139/72; PULSE 93
== END 2021-12-08 07:29 | disposition home or self-care (01) ==
PROVIDERS: PCP Family Medicine Adult Medicine; Visit Provider Internal Medicine Cardiovascular Disease
DX: R07.9 Chest pain, unspecified (principal); R06.02 Shortness of breath; R06.09 Other forms of dyspnea
CPT/HCPCS: 78452; 93017; A9500

== ENCOUNTER → 2022-11-11 08:33 | Outpatient (BNVA) | payer OTHER, SELFPAY | PROVIDERS: PCP Family Medicine Adult Medicine; Visit Provider Family Medicine Adult Medicine | DX: R68.89 Other general symptoms and signs (principal); J10.1 Influenza due to other identified influenza virus with other respiratory manifestations | CPT/HCPCS: 87400 ==

== ENCOUNTER → 2022-12-03 08:58 | Outpatient (BNVA) | payer OTHER, SELFPAY | PROVIDERS: PCP Family Medicine Adult Medicine; Visit Provider Family Medicine Adult Medicine | DX: R56.9 Unspecified convulsions (principal); M50.30 Other cervical disc degeneration, unspecified cervical region; D71 Functional disorders of polymorphonuclear neutrophils; R00.0 Tachycardia, unspecified; F90.9 Attention-deficit hyperactivity disorder, unspecified type; R59.0 Localized enlarged lymph nodes; Z90.10 Acquired absence of unspecified breast and nipple; Z98.82 Breast implant status | CPT/HCPCS: 80053; 84443; 85025 ==

== ENCOUNTER 2023-03-30 12:25 | Outpatient (CLI) | payer OTHER, SELFPAY ==
--- NOTE | 2023-03-30 12:30 | USCV_ITS ---
Marsha Marshall Age: 42 Gender: F : 1980 Exam Date: 03/30/2023 12:48 Ordering Phys: Tito Harrison MD ([email or web address]) Technologist: Unruly Blanchard Exam Location: [facility] [place] Indication: rule out chf BP: 106 / 74 HR: 87 Rhythm: Sinus Technical Quality: Adequate MEASUREMENTS (Male / Female) Normal Values 2D ECHO LVOT Diameter 2.0 cm LV Ejection Fraction MOD 2C 72.0 % LV Ejection Fraction 2C AL 72.6 % LA Diameter 3.0 cm LA Width 3.0 cm LA Height 3.0 cm RA Width 3.5 cm RA Height 3.7 cm Aorta at Sinotubular Diameter 2.3 cm IVC Diameter 1.9 cm M-MODE Aortic Annulus Diameter 1.9 cm MV E Point Septal Separation 0.5 cm DOPPLER AV Peak Velocity 110.0 cm/s LVOT Peak Velocity 83.0 cm/s AV Area Cont Eq vti 2.3 cm squared AV Area Cont Eq pk 2.4 cm squared MV Area PHT 5.0 cm squared Mitral E to A Ratio 1.3 MV E' Velocity 48.0 cm/s Mitral E to MV E' Ratio 5.8 Mitral E to LV E' Lateral Ratio 5.1 Mitral E to LV E' Septal Ratio 6.8 TR Peak Velocity 286.4 cm/s TR Peak Gradient 32.8 mmHg TR Mean Velocity 235.7 cm/s TR Mean Gradient 22.6 mmHg TR Velocity Time Integral 73.5 cm Right Atrial Pressure 3.0 mmHg Pulmonary Artery Systolic Pressu 35.8 mmHg PV Peak Velocity 101.0 cm/s RV Acceleration Time 0.2 s RV Ejection Time 0.3 s RV AcT/ET 0.6 FINDINGS Left Ventricle Normal left ventricular size, systolic function and wall thickness, with no regional wall motion abnormalities. Normal diastolic function. Left ventricular ejection fraction is estimated at 55 %. Right Ventricle Normal right ventricular size and systolic function. Normal right ventricular systolic pressure. Right Atrium The right atrium is normal in size. Left Atrium The left atrium is normal in size. Mitral Valve Structurally normal mitral valve without significant stenosis or prolapse. There is no mitral regurgitation. Aortic Valve Structurally normal aortic valve without significant sclerosis or stenosis. There is no aortic regurgitation. Tricuspid Valve Structurally normal tricuspid valve. Trace tricuspid valve regurgitation. Pulmonic Valve Pulmonic valve not well visualized. Pericardium Normal pericardium without effusion. Aorta Normal ascending aorta dimension. IVC The inferior vena cava appears normal. CONCLUSIONS Normal transthoracic echocardiogram. There are no prior echocardiogram studies to compare. Dr. Tito Harrison MD (Electronically Signed) Final Date: 30 Mar 2023 16:29 S
--- NOTE | 2023-03-30 13:16 | XRR_ITS ---
PROCEDURE INFORMATION: Exam: XR Chest Exam date and time: 03/30/2023 1:19 PM Age: 42 years old Clinical indication: Cough; Prior surgery; Surgery date: 6+ months; Surgery type: Mastectomy TECHNIQUE: Imaging protocol: Radiologic exam of the chest. Views: 2 views. COMPARISON: CT cervical spine w con [id number] 07/08/2021 1:45 PM FINDINGS: Lungs: Unremarkable. No consolidation. Pleural spaces: Unremarkable. No pleural effusion. No pneumothorax. Heart/Mediastinum: Unremarkable. No cardiomegaly. Bones/joints: Unremarkable. XR/XR chest 2V* [id number] IMPRESSION: No acute findings.
== END 2023-03-30 12:26 | disposition home or self-care (01) ==
LOC: RAD 12:30
PROVIDERS: PCP Family Medicine Adult Medicine; Visit Provider Internal Medicine Cardiovascular Disease
DX: R05.3 Chronic cough (principal)
CPT/HCPCS: 71046; 93306

== ENCOUNTER 2023-05-27 06:07 | Outpatient (CLI) | payer OTHER, SELFPAY ==
--- NOTE | 2023-05-27 | US_ITS ---
WS: [id number] RIGHT UPPER QUADRANT ULTRASOUND HISTORY: ABNORMAL LABS COMPARISON: None available. Liver: 15.6 cm in length. Normal size liver and echogenicity. No bile duct dilatation or mass. Portal Vein: Normal hepatopetal flow with monophasic waveform. Gallbladder: Status post cholecystectomy. CBD: 0.2 cm Pancreas: Normal size and echogenicity. Right kidney: 11.1 cm in length. Normal size and echogenicity. No hydronephrosis or mass. Aorta and IVC: Unremarkable abdominal aorta and IVC. No ascites. US/US abdomen limited [id number] IMPRESSION: 1. Status post cholecystectomy. 2. Otherwise normal.
== END 2023-05-27 06:08 | disposition home or self-care (01) ==
LOC: RAD 06:09
PROVIDERS: PCP Family Medicine Adult Medicine; Visit Provider Nurse Practitioner
DX: R74.8 Abnormal levels of other serum enzymes (principal); Z90.49 Acquired absence of other specified parts of digestive tract
CPT/HCPCS: 76705

== ENCOUNTER 2023-06-23 13:46 | Outpatient (CLI) | payer OTHER, SELFPAY ==
--- NOTE | 2023-06-23 13:57 | MM_ITS ---
WS: [id number] LEFT 3D TOMOSYNTHESIS DIGITAL MAMMOGRAPHY WITH CAD CLINICAL INFORMATION: RT SIDE LUMP/RT MST HISTORY: RIGHT side axillary lump. History of RIGHT mastectomy and bilateral breast implants COMPARISON: Outside study 2 18,016 TECHNIQUE: 3 views of the left breast were obtained. FINDINGS: Scattered fibroglandular densities of the left breast. LEFT breast implant appears intact. No suspicious focal mass, asymmetry, calcifications, or architectural distortion. No evidence of aminah gnancy. MM/[place] [id number] IMPRESSION: BI-RADS: 2-Benign FOLLOW UP: 1 Year Follow-up Recommend return to annual screening mammography.
--- NOTE | 2023-06-23 15:10 | US_ITS ---
WS: [id number] ULTRASOUND RIGHT AXILLA INDICATION: Lump RIGHT axilla TECHNIQUE: Ultrasound soft tissue RIGHT axilla area of concern FINDINGS: Ultrasound soft tissue RIGHT axilla and axillary tail area of concern. A few lymph nodes ar e visualized in the area of palpable concern. These have normal appearance with persistent fatty hilu m. No suspicious cystic or solid lesions. Partially visualized RIGHT breast implant. US/US soft tissue/extremity [id number] IMPRESSION: A few normal appearing lymph nodes in the area of concern RIGHT axi lla.
== END 2023-06-23 13:47 | disposition home or self-care (01) ==
LOC: RAD 13:48
PROVIDERS: PCP Family Medicine Adult Medicine; Visit Provider Nurse Practitioner
DX: N64.89 Other specified disorders of breast (principal); Z85.3 Personal history of malignant neoplasm of breast; R22.9 Localized swelling, mass and lump, unspecified
CPT/HCPCS: 76882; 77062; G0279

== ENCOUNTER 2023-09-28 15:23 | Outpatient (CLI) | payer OTHER, SELFPAY ==
--- NOTE | 2023-09-28 15:33 | XR_ITS ---
WS: [id number] DEXA (DUAL ENERGY X-RAY ABSORPTIOMETRY) Bone mineral density was performed using a [employer] machine. HISTORY: ?OSTEOARTHRITIS/RECENT FRACTURES COMPARISON: None available. Left forearm BMD: 0.997 g/cm2. T score: 1.4 Z score: 1.4 Total hip BMD: Left: 0.928 g/cm2. T score: -0.6 Z score: -0.2 Right: 0.925 g/cm2. T score: -0.7 Z score: -0.2 10 year probability of a major osteoporotic fracture is 8%. IMPRESSION: NORMAL BONE MINERAL DENSITY based upon the WHO classification for females.
== END 2023-09-28 15:24 | disposition home or self-care (01) ==
LOC: RAD 15:23
PROVIDERS: PCP Family Medicine Adult Medicine; Visit Provider Nurse Practitioner
DX: Z13.828 Encounter for screening for other musculoskeletal disorder (principal); T14.8XXA Other injury of unspecified body region, initial encounter; X58.XXXA Exposure to other specified factors, initial encounter
CPT/HCPCS: 77080

== ENCOUNTER 2024-06-25 09:12 | Outpatient (CLI) | payer OTHER, SELFPAY ==
--- NOTE | 2024-06-25 09:20 | MM_ITS ---
WS: [id number] BILATERAL SCREENING DIGITAL BREAST MAMMOGRAPHY WITH SHITAL DISPLACEMENT VIEWS. CAD PERFORMED. HISTORY: SCREENING COMPARISON: 06/23/2023 Bilateral craniocaudal and mediolateral oblique views are performed with tomosynthesis and SM. Shital displacement views in CC and MLO projection also performed. Breasts composition: There are scattered areas of fibroglandular density. Prepectoral implants are intact. No suspicious masses or calcifications. Dense fibroglandular tissue posterior to the LEFT nipple is stable. MM/[place] [id number] IMPRESSION: BI-RADS: 2-Benign FOLLOW-UP: 1 Year Follow-up
== END 2024-06-25 09:13 | disposition home or self-care (01) ==
LOC: RAD 09:15
PROVIDERS: PCP Nurse Practitioner; Visit Provider Nurse Practitioner
DX: Z12.31 Encounter for screening mammogram for malignant neoplasm of breast (principal); R92.323 Mammographic fibroglandular density, bilateral breasts; Z98.82 Breast implant status
CPT/HCPCS: 77063; 77067

== ENCOUNTER 2025-06-06 08:28 | Outpatient (CLI) | payer OTHER, SELFPAY ==
--- NOTE | 2025-06-06 | FL_ITS ---
NOTE: Report did not cross due to system issue. Original Signature date and time was: 06/06/25 @ 11:01 FL barium swallow modifd [id number] REASON FOR EXAM: Other dysphagia FLUOROSCOPY TIME: 2min [id number] # OF SPOT FILMS: None TECHNIQUE: Examination was supervised by the speech therapy department. Patient was examined in the sitting upright lateral projection. The swallowing of varying consistencies of barium was monitored fluoroscopically and video recorded. FINDINGS: There was no laryngeal vestibule penetration or aspiration. There was no impedance to the passage of the barium tablet through the thoracic esophagus. IMPRESSION: Detailed report of the swallowing will be rendered by the speech therapy department. No penetration or aspiration. No esophageal obstruction. MTDD
== END 2025-06-06 08:29 | disposition home or self-care (01) ==
LOC: RAD 08:29
PROVIDERS: PCP Nurse Practitioner; Visit Provider Nurse Practitioner
DX: R13.19 Other dysphagia (principal)
CPT/HCPCS: 74230; 92611

== ENCOUNTER → 2025-09-02 07:45 | Outpatient (BNVA) | payer OTHER, SELFPAY | PROVIDERS: PCP Nurse Practitioner; Visit Provider Dermatology | DX: L73.2 Hidradenitis suppurativa (principal); L73.9 Follicular disorder, unspecified; R20.2 Paresthesia of skin; L72.0 Epidermal cyst | CPT/HCPCS: 99204 ==

== ENCOUNTER → 2025-09-11 13:14 | Outpatient (BNVA) | payer OTHER, SELFPAY | PROVIDERS: PCP Nurse Practitioner; Visit Provider Dermatology | DX: D48.5 Neoplasm of uncertain behavior of skin (principal); R20.8 Other disturbances of skin sensation; R23.8 Other skin changes; L53.8 Other specified erythematous conditions | CPT/HCPCS: 11442; 12052 ==

== ENCOUNTER → 2025-11-04 08:19 | Outpatient (BNVA) | payer OTHER, SELFPAY | PROVIDERS: PCP Nurse Practitioner; Visit Provider Dermatology | DX: L73.2 Hidradenitis suppurativa (principal); R20.2 Paresthesia of skin; Z79.899 Other long term (current) drug therapy | CPT/HCPCS: 99214 ==

== ENCOUNTER → 2025-11-06 14:52 | Outpatient (BNVA) | payer OTHER, SELFPAY | PROVIDERS: PCP Nurse Practitioner; Visit Provider Dermatology | DX: D48.5 Neoplasm of uncertain behavior of skin (principal) | CPT/HCPCS: 11102 ==